=== PATIENT | female | born 1945 | race Caucasian/White ===

== ENCOUNTER → 2016-10-30 | Outpatient (CLI) | payer OTHER, BC ==
[~2016-10-30] MED LIST: ASPEC325 PO; CLB200 PO; CLTP PO; FRRS300 PO; LRT5 PO; MULT-506 PO; [UNRECOGNIZED DRUG - REMARK] PO
--- NOTE | 2016-10-30 16:46 | MAMMOGRAPHY REPORT ---
UNILATERAL LEFT DIGITAL SCREENING MAMMOGRAM TOMOSYNTHESIS WITH CAD: 10/30/2016 CLINICAL HISTORY: Asymptomatic. Personal history of breast cancer. TECHNIQUE: Left breast tomosynthesis in addition to standard 2D mammography was performed. Current estelle gillespie was also evaluated with a Computer Aided Detection (CAD) system. COMPARISON: Comparison is made to exams dated: 10/25/2015 mammogram, 10/22/2014 mammogram, 09/25/2013 giuseppe mogram, 09/24/2012 mammogram, 08/03/2011 mammogram, and 08/01/2010 mammogram - [facility]. BREAST COMPOSITION: The tissue of the left breast is heterogeneously dense, which may obscure small masses. FINDINGS: Again seen is stable asymmetry in the 12:00 left breast. No new suspicious mass, architec tural distortion or cluster of microcalcifications is seen. IMPRESSION: ACR BI-RADS CATEGORY 1: NEGATIVE There is no mammographic evidence of malignancy. A 1 year screening mammogram is recommended. The p atient will receive written notification of the results. Approximately 10% of breast cancers are not detected with mammography. A negative mammographic repor t should not delay biopsy if a clinically suggestive mass is present. Amy Estrada M.D. ay/:10/30/2016 15:41:33 Metal Tank Erector: Jenn HILLS)(Kirti), [facility] letter sent: Normal 1/2 BI-RADS Code: ACR BI-RADS Category 1: Negative
== END | disposition home or self-care (01) ==
LOC: C.MAMM 13:21
PROVIDERS: ATTEND Family Medicine
DX: Z12.31 Encounter for screening mammogram for malignant neoplasm of breast (principal); Z90.11 Acquired absence of right breast and nipple; M85.832 Other specified disorders of bone density and structure, left forearm; M85.88 Other specified disorders of bone density and structure, other site

== ENCOUNTER → 2017-08-26 | Outpatient (CLI) | payer OTHER, BC | END | disposition home or self-care (01) | LOC: C.PAPS 13:18 | PROVIDERS: ATTEND Family Medicine | DX: Z01.419 Encounter for gynecological examination (general) (routine) without abnormal findings (principal) ==

== ENCOUNTER → 2017-11-05 | Outpatient (CLI) | payer OTHER, BC ==
--- NOTE | 2017-11-06 07:52 | MAMMOGRAPHY REPORT ---
UNILATERAL LEFT DIGITAL SCREENING MAMMOGRAM TOMOSYNTHESIS WITH CAD: 11/05/2017 CLINICAL HISTORY: Asymptomatic. Personal history of breast cancer. TECHNIQUE: Left breast tomosynthesis in addition to standard 2D mammography was performed. Current st udy was also evaluated with a Computer Aided Detection (CAD) system. COMPARISON: Comparison is made to exams dated: 10/30/2016 mammogram, 10/25/2015 mammogram, 10/22/2014 giuseppe mogram, 09/25/2013 mammogram, 09/24/2012 mammogram, and 08/03/2011 mammogram - [facility] BREAST COMPOSITION: The tissue of the left breast is heterogeneously dense, which may obscure small masses. FINDINGS: The parenchymal pattern is similar to prior mammograms. There is stable focal asymmetry i n the 12:00 left breast. No developing mass, architectural distortion or cluster of suspicious micro calcifications is seen. IMPRESSION: ACR BI-RADS CATEGORY 2: BENIGN There is no mammographic evidence of malignancy. A 1 year screening mammogram is recommended. The pa tient will receive written notification of the results. Approximately 10% of breast cancers are not detected with mammography. A negative mammographic report should not delay biopsy if a clinically suggestive mass is present. Amy Estrada M.D. ay/:11/05/2017 15:28:07 Front Office Manager: Jane HILLS)(M), [facility] letter sent: Normal 1/2 BI-RADS Code: ACR BI-RADS Category 2: Benign
== END | disposition home or self-care (01) ==
LOC: C.MAMM 09:43
PROVIDERS: ATTEND Family Medicine
DX: Z12.31 Encounter for screening mammogram for malignant neoplasm of breast (principal); Z85.3 Personal history of malignant neoplasm of breast

== ENCOUNTER 2024-06-03 06:37 | Inpatient (IN) ==
--- NOTE | 2024-04-20 16:25 | PAT Medication Instructions ---
Medication Instructions Date of Service April 20, 2024 Home Medications Medication Instructions Recorded meclizine 25 mg tablet 25 mg PO TID PRN dizziness #90 tabs 10/24/22 walker (Ultra-Light Rollator misc) #1 ea 02/10/24 metaxalone 400 mg tablet 800 mg PO TID PRN muscle pain multivitamin (Daily Multi-Vitamin tablet) 1 tab PO QAM meclizine 25 mg tablet 25 mg PO TID PRN dizziness acetaminophen 650 mg tablet,extended release 650 mg PO Q8H PRN Pain melatonin 10 mg tablet,extended release 10 mg PO HS DO NOT take the morning of surgery multivitamin (Daily Multi-Vitamin tablet) 1 tab PO QAM Take morning of surgery With a small sip of water, OTHERWISE NOTHING TO EAT OR DRINK AFTER MIDNIGHT: meclizine 25 mg tablet 25 mg PO TID PRN dizziness (if needed) acetaminophen 650 mg tablet,extended release 650 mg PO Q8H PRN Pain (if needed) metaxalone 400 mg tablet 800 mg PO TID PRN muscle pain (if needed) Take evening before surgery meclizine 25 mg tablet 25 mg PO TID PRN dizziness(if needed) acetaminophen 650 mg tablet,extended release 650 mg PO Q8H PRN Pain (if needed) melatonin 10 mg tablet,extended release 10 mg PO HS metaxalone 400 mg tablet 800 mg PO TID PRN muscle pain (if needed) Other Notes If you have any questions please call us at [phone] or [phone] or [phone] or [phone]
--- NOTE | 2024-05-01 12:01 | Anesthesiology Consultation ---
Date of Service May 01, 2024 Assessment & Plan (1) Encounter for pre-operative examination: Plan - right arm restriction. - Outpatient joint assessment: Patient is currently scheduled for inpatient pathway. If re-evaluated and patient/surgeon requests outpatient pathway, patient is not advised candidate for outpatient joint program from anesthesia standpoint. Chart Review Chart Review: Acceptable Risk for Surgery and Patient seen in Pre Admission Testing Teaching & Discussion Pre-Anesthesia Teaching/Discussion Notes: Instructed NPO after midnight before surgery, except medications with 15 cc of water. Medication instructions provided according to the PAT guidelines. History Surgery Operation Date: 06/03/24 07:00 Proposed Procedures p Right Total Knee Arthroplasty - Rigo Felton MD Height/Weight Height: 5 ft 7.5 in Weight: 69.1 kg Allergies Allergy/AdvReac Type Severity Reaction Status Date / Time meperidine AdvReac Mild Nausea Verified 05/01/24 12:08 Medications Home Medications Medication Instructions Recorded Confirmed Last Taken metaxalone 400 mg tablet 800 mg PO TID PRN muscle pain 07/06/21 04/17/24 Unknown multivitamin (Daily Multi-Vitamin 1 tab PO QAM 07/06/21 04/17/24 Unknown tablet) meclizine 25 mg tablet 25 mg PO TID PRN dizziness #90 tabs 10/24/22 04/17/24 Unknown walker (Ultra-Light Rollator misc) #1 ea 02/10/24 Unknown acetaminophen 650 mg 650 mg PO Q8H PRN Pain 04/17/24 04/17/24 Unknown tablet,extended release melatonin 10 mg tablet,extended 10 mg PO HS 04/17/24 04/17/24 Unknown release Past Medical History Medical History (Updated 05/01/24 @ 12:11 by Asha Alejo PA-C) Hearing loss History of COVID-2020: joint pain, palpitations (resolved) - never had to f/u with cardiology History of poliomyelitis as a child, affected the right side at the time, then resolved. no residual effects. Hx of breast cancer (1992) right breast s/p mastectomy Hx of low back pain Hx of vertigo Limb alert care status right arm Osteoarthritis Osteopenia Tinnitus chronic since chemotherapy White coat syndrome without hypertension Patient denies h/o stroke, seizures, heart attack, heart failure, DM, blood clots/DVTs or blood transfusions. Exercise / Class Metabolic Activity III < 4 Walking/Shop/Light housework (ambulates with rolling walker, denies chest discomfort or shortness of breath with usual activities) Past Family History Family History Mother Breast cancer Other No family history of adverse response to anesthesia Past Surgical History Surgical History H/O colonoscopy last had May 2017. History of breast biopsy (11/2023) left breast (benign) with metal clip inplace. History of cholecystectomy History of mastectomy (1992) Right with lymph nodes Status post hip replacement bilateral Past Anesthesia History No Hx of Anesthesia Complications and No Family Hx of Anesthesia Complications History of PONV No Hx of PONV and No Hx of Motion Sickness Social History Smoking Status: Never smoker Do You Dip or Chew Tobacco: No Hx Alcohol Use: No Hx Substance Use: No Review of Systems Patient denies chest pain, shortness of breath, dyspnea on exertion, snoring, witnessed apneas, reflux, fever, chills, cough, wheezing, or palpitations. Physical Exam Vital Signs Vitals BP 164/92 P 100 (Pt notes anxiety at clinical appts) TEMP 98.0 F SP02 98% on RA RESP 18 Physical Patient resting comfortably in chair in no acute distress, alert and oriented, responding appropriately throughout visit Full cervical extension range of motion without pain TMD 3.5 finger breadths Mallampati Score 2 Dentition: several caps, denies chipped or loose teeth, crowns, implants or bridges Lungs: normal respiratory effort. Good air movement, clear throughout to auscultation, no adventitious breath sounds Cardiac: regular rate and rhythm, no murmurs noted Carotid arteries: negative bruit bilat Lab Results Anesthesia Preop Results Results Anesthesia Widget: WBC 7.18 K/ul (4.8-10.8) 05/01/24 Hgb 11.9 g/dl (12.0-16.0) L 05/01/24 Hct 35.0 % (37.0-47.0) L 05/01/24 Plt 360 K/uL (130-400) 05/01/24 Na 135 mmol/L (136-145) L 05/01/24 K 3.9 mmol/L (3.5-5.1) 05/01/24 Cl 99 mmol/L (98-107) 05/01/24 CO2 26 mmol/L (21-32) 05/01/24 BUN 13 mg/dl (6-23) 05/01/24 Creat 0.55 mg/dl (0.6-1.2) L 05/01/24 Glucose Level 106 mg/dl (70-99(Fasting)) H 05/01/24 PT 10.9 Seconds (9.0-12.0) 05/01/24 PTT 31 Seconds (21-31) 05/01/24 INR 1.0 (0.9-1.1) 05/01/24 Blood Type O Positive 05/01/24 Antibody Screen NEGATIVE 05/01/24 Testing Electrocardiogram Date: 05/01/24 NSR, rate 94 bpm Chest X-Ray Date: 05/01/24 No acute process.
[~2024-06-03 06:37] MED LIST changes: -ASPEC325 PO; +BUPIVACAINE 0.25% PF 30 ML VIAL ONE; +BUPIVACAINE 0.5 % 5 MG/1 ML PF 10ML VIAL ONE; -CLB200 PO; -CLTP PO; -FRRS300 PO; -LRT5 PO; -MULT-506 PO; -[UNRECOGNIZED DRUG - REMARK] PO
--- NOTE | 2024-06-03 06:49 | History & Physical Bridge Note ---
Date of Service June 03, 2024 History & Physical Bridge Note I have examined the patient, reviewed the History & Physical and in the interval since the performance of the History & Physical I have noted the following changes of clinical significance: conmsebt and site verified/riska accepted.no changes noted
[2024-06-03] MEDS ORDERED: fentaNYL citrate PF 100 MCG/2 ML VIAL ONE (07:18)
[2024-06-03] MEDS ORDERED: LIDOCAINE 2% 2 ML VIAL/AMP(20MG/ML) INFIL ONE (07:18)
[2024-06-03] MEDS ORDERED: MIDAZOLAM HCL 1 MG/ML 2ML VIAL ONE (07:18)
[2024-06-03] MEDS ORDERED: PROPOFOL IV EMULSION 10 MG/ML 20 ML VIAL IV ONE ×3 (07:18→10:07)
[2024-06-03] MEDS: LR 60ML/HR IV SCH (07:35)
[2024-06-03] MEDS: LR 500ML BOLUS, THEN 15ML/HR IV SCH (07:35)
[2024-06-03] MEDS ORDERED: ONDANSETRON INJ 2 MG/ML 2 ML VIAL IV PRN ×2 (08:21→13:27)
[2024-06-03] MEDS ORDERED: ATROPINE SULFATE 0.1 MG/ML 10ML SYR IV PRN (08:21)
[2024-06-03] MEDS ORDERED: ePHEDrine sulfate 50 MG/ML AMP IV PRN (08:21)
[2024-06-03] MEDS: TRANEXAMIC ACID 1,000 MG **IV Pre-op IV SCH (08:38)
[2024-06-03] MEDS: ceFAZolin 2000MG 2,000 MG/15 ML SYR IV SCH (08:56)
[2024-06-03] MEDS ORDERED: ePHEDrine sulfate 50 MG/5 ML SYR ONE (09:16)
[2024-06-03] MEDS: TRANEXAMIC ACID 1,000 MG **IV Intra-op IV SCH (10:12)
[2024-06-03] MEDS: ORTHO JOINT ANESTHETIC ONE (10:17)
[2024-06-03] MEDS: ROPIV 0.5% 246mg, Ketorolac 30mg, EPINEPHrine 0.5mg in NSS INFIL SCH (10:32)
--- NOTE | 2024-06-03 10:41 | Post Operative Brief Note ---
Immediate Post Op Note Date of Surgery June 03, 2024 Pre & Post Diagnosis Operation Date: 06/03/24 08:50 <No data on this case meets the specified criteria> Preop diagnosis is valgus deformity with severe osteoarthritis right knee marked synovitis pre and postop diagnosis same I identified the patient and participated in the time-out.: Yes Procedure Operation Date: 06/03/24 08:50 <No data on this case meets the specified criteria> Procedure cemented right total knee replacement Surgeon Rigo Felton MD Laboratory Technologist Stephania/Yonis villegas Estimated Blood Loss 100 Findings Consistent with Post-Op Diagnosis Severe osteoarthritis marked synovitis osteoporosis Fluids Crystalloid per anesthesia Complications None
--- NOTE | 2024-06-03 10:46 | Operative Report ---
Post Operative Report Pre & Post Diagnosis Operation Date: 06/03/24 08:50 <No data on this case meets the specified criteria> Preop diagnosis severe osteoarthritis right knee with valgus deformity and hypertrophic synovium Postop diagnosis severe osteoarthritis right knee with valgus deformity hypertrophic synovium I identified the patient and participated in the time-out.: Yes Procedure Operation Date: 06/03/24 08:50 <No data on this case meets the specified criteria> Cemented right total knee replacement Surgeon Rigo Felton MD Manager Van Kip villegas Estimated Blood Loss 100 Findings Consistent with Post-Op Diagnosis Severe disease Fluids Crystalloid per anesthesia Specimens Bone and soft tissue pathology Drains None Complications None Indications Severe pain failed conservative management over years Description of Procedure After the patient was appropriate notified site verified consent verified antibiotics confirmed as a given the right lower extremity was prepped and draped in his routine fashion. Tourniquet was inflated to 275 mmHg after exsanguination limb with a rubber arthrograms for total 64 minutes. Midline exposure was utilized. Parapatellar arthrotomy was performed. There was exuberant synovitis and synovial fluid this was all evacuated and the synovectomy completed. There is osteophytes along the margin of the femur. These were resected. Intercondylar notch was then opened. Cruciates were resected. The tibia was subluxated. The menisci resected. Femur was then resected 11 mm proximal tibia 4 mm the extension gap was excellent. The femur was sized to a 6 and appropriate cutting block applied the anterior posterior, and chamfer cuts made. Flexion gap was checked and was excellent. The box cut was then completed and the size 6 femur was then impacted into position. Tibia was then subluxated anteriorly and size 5 was appropriate block we did use a stem cell the root the stem reaming system was applied. A 30 mm stem was utilized. Excellent fit was obtained reduction was excellent full range of motion reasonable tracking of the patella and excellent midrange full flexion stability and extension was to 0. Patella was resected leaving 14 mm and a 3 5 button was seated. With a little bit of soft tissue release not a full- thickness release tracked well. All implants were then removed wound was irrigated with Pulsavac soaked in Betadine for 2 minutes and then after mixing the cement and the implants were impacted into position tibia femur and patella in that order after 15 minutes the knee was inspected the tourniquet was released at 12 minutes there was no major bleeding. Once everything looked good no major cement removal was required the trial spacer was removed and the permanent seated the knee reduced after was irrigated with Betadine and then closed at 40 degrees of flexion with #2 Vicryl 2-0 Vicryl and standstill clips. Summary of implants size 6 right femur posterior cruciate substituting size rotating platform tray 14 x 30 stem on the tray 35 patella 6 x 6 RP stabilized insert matching the femur. These were all DePuy [employer] Synthes ATT UNE system. EBL was roughly 175 200 cc crystalloid per anesthesia pathology pending on bone and soft tissue. DVT prophylaxis per protocol starting tomorrow. I attest to the content of the Intraoperative Record and any orders documented therein. Any exceptions are noted below.
--- NOTE | 2024-06-03 10:49 | Orthopedic Progress Note ---
Date of Service June 03, 2024 Orthopedic Progress Note Patient underwent right total knee replacement. She did well. There is no major issues. Wound dressing clean dry and intact neurovascular limited by spinal. Postop x-rays pending. Family contacted.
--- NOTE | 2024-06-03 10:51 | Discharge Summary ---
Date of Service June 04, 2024 Admission HPI Per Admitting Provider Right knee pain severe valgus deformity Principal Diagnosis Osteoarthritis valgus deformity right knee with marked synovitis Discharge Data Allergies Allergy/AdvReac Type Severity Reaction Status Date / Time meperidine AdvReac Mild Nausea Verified 06/03/24 06:59 Vaccinations None Consultations None Procedures Performed Operation Date: 06/03/24 08:50 Actual Procedures p Right Total Knee Arthroplasty, Cemented - Rigo Felton MD Ordered Studies 06/03/24 05:00 US - OR guided needle placemen Routine Hospital Course (1) Status post right knee replacement: Care plan for right total knee replacement 23-hour admission. Total Time Total Time Spent Total Time Spent (In Minutes): 5 Discharge Plan Discharge Items Reason For Visit: Osteoarthritis Knee Right Discharge Diagnosis: Status post right total knee replacement Follow-up/Referrals: Jodi Antunez DO [Primary Care Provider] - Addtl Attending Provider Instructions: DIET: * Resume previous diet. MEDICATIONS: * Please take your prescriptions as instructed at your pre-op appointment and/or see medication discharge instructions listed above. * If concerns develop, call your physician's office at . SPECIAL CARE INSTRUCTIONS: * Ice/Elevate as instructed. * Keep dressing clean, dry, intact. * Your surgical extremity may be discolored due to prepping agents used on the skin. A bluish-green tint is a normal variant and should not cause alarm. Call your doctor at [phone] if: * Temperature above 101 degrees * Pain not relieved by pain medicine ordered * There is increased drainage or redness from any incision * You have any unanswered questions, problems or concerns. FOLLOW UP VISIT: * If not already scheduled, please call the office at to schedule a follow-up appointment. Stand-Alone Forms: My [facility] Medications and DC Order Prescriptions: No Action meclizine 25 mg tablet 25 mg PO TID PRN (Reason: dizziness) Qty: 90 2RF (DME) Ultra-Light Rollator Misc See Rx Instructions .Route Qty: 1 0RF Rx Instructions: As directed multivitamin [Daily Multi-Vitamin] Tablet 1 tab PO QAM metaxalone 400 mg tablet 800 mg PO TID PRN (Reason: muscle pain) lisinopril 10 mg tablet 10 mg PO DAILY Qty: 90 0RF melatonin 10 mg Tablet Extended Release 10 mg PO HS acetaminophen [Tylenol Arthritis] 650 mg Tablet Extended Release 650 mg PO Q8H PRN (Reason: Pain) Admission Data Admit Date/Time: 06/03/24 11:04 Attending Provider: Rigo Felton Admit Provider: Rigo Felton Primary Care Provider: Jodi Antunez Other Providers: [facility],Home Healthcare
--- NOTE | 2024-06-03 10:53 | Operative Report ---
Post Operative Report Pre & Post Diagnosis Operation Date: 06/03/24 08:50 Pre-Op Diagnosis: Right Knee Osteoarthritis Post-Op Diagnosis: Right Knee Osteoarthritis I identified the patient and participated in the time-out.: Yes Procedure Operation Date: 06/03/24 08:50 Actual Procedures p Right Total Knee Arthroplasty, Cemented - Rigo Felton MD Surgeon Rigo Felton MD Pipe Setter Stephania/Yonis villegas Estimated Blood Loss 100 Findings Consistent with Post-Op Diagnosis Specimens Bone and soft tissue pathology Description of Procedure The patient was brought to the operative suite where she underwent anesthesia. The right lower extremity was prepped and draped in the usual sterile fashion. Surgical timeout was performed. The patient underwent a right total knee arthroplasty; please see Dr. Felton's operative for full details. I was present assisted with limb positioning, patient positioning, soft tissue retraction, surgical exposure, bony resection, hardware implantation, wound closure, postoperative dressing placement. Patient was awakened and taken to the recovery room in stable condition. I attest to the content of the Intraoperative Record and any orders documented therein. Any exceptions are noted below.
--- NOTE | 2024-06-03 11:16 | XRay Report ---
XR knee RT 1 or 2V routine CLINICAL HISTORY: S/P R TKA COMPARISON: Right knee radiographs February 24, 2024. FINDINGS: Alignment of the total right knee arthroplasty is anatomic. There is no periprosthetic fra cture or unexpected radiopaque foreign body. There are skin carisa. IMPRESSION: Expected findings following total right knee arthroplasty. ACT 112: Negative or not required by law. Electronically signed by: Elvis Ventura M.D. 06/03/2024 11:14 AM
[2024-06-03] MEDS ORDERED: VANCOMYCIN CONSULT ACTIVE PRN (11:21)
[2024-06-03] MEDS ORDERED: VANCOMYCIN HCL 1,000 MG in DEXTROSE 5% 250 ML IV STA (11:21)
[2024-06-03] MEDS: fentaNYL citrate PF 100 MCG/2 ML VIAL IV PRN (12:09)
--- NOTE | 2024-06-03 12:35 | Anesthesiology Progress Note ---
Date of Service June 03, 2024 Anesthesia Post Procedure Vital Signs Vital Signs: Temp Pulse Resp BP Pulse Ox O2 Del Method O2 Flow Rate 06/03/24 12:30 81 18 114/63 95 Room Air 06/03/24 12:00 96 H 18 140/61 96 Room Air 06/03/24 11:30 36.5 C 88 20 120/92 96 Room Air 06/03/24 11:20 88 20 104/62 96 Room Air 06/03/24 11:10 97 H 20 112/47 L 98 Room Air 06/03/24 11:00 105 H 18 96/64 L 98 Oxymask 4 06/03/24 10:54 36 C L 96 H 12 93/45 L 96 Oxymask 6 06/03/24 07:12 36.9 C 102 H 20 172/76 H 97 Room Air Pain Intensity Right Knee: Pain Intensity: 5 Transfer of Care Handoff Completed per policy Notes Mental Status: alert / awake / arousable Patient Amnestic to Procedure: Yes Nausea / Vomiting: adequately controlled Pain: adequately controlled Airway Patency, RR, SpO2: stable & adequate BP & HR: stable & adequate Hydration State: stable & adequate Neuraxial Anesthesia: was administered and sensory block is resolving Anesthetic Complications: no major complications apparent and Pt Satisfied with anesthetic care
[2024-06-03] MEDS ORDERED: MAGNESIUM HYDROXIDE SUSP 30 ML UDC PO PRN (13:27)
[2024-06-03] MEDS ORDERED: bisacodyL 10 MG SUPP PR PRN (13:27)
[2024-06-03] MEDS ORDERED: HYDROmorphone INJ 1 MG/ML SYRINGE IV PRN (13:27)
[2024-06-03] MEDS ORDERED: NALOXONE HCL 0.4 MG/1 ML VIAL/CARP IV PRN (13:27)
[2024-06-03] MEDS ORDERED: MECLIZINE HCL 25 MG TAB PO PRN (13:27)
[2024-06-03] MEDS: VANCOMYCIN HCL 1,000 MG in DEXTROSE 5% 250 ML IV STA (14:01)
[2024-06-03] MEDS: ACETAMINOPHEN 500 MG TAB PO SCH (15:19)
[2024-06-03] MEDS: ceFAZolin 1000MG 1,000 MG/7.5 ML SYR IV SCH (16:55)
[2024-06-03] MEDS: oxyCODONE HCL IR 5 MG TAB (IMMEDIATE RELEASE) PO PRN (16:55)
[2024-06-03] MEDS: MELATONIN 3 MG TAB PO SCH (20:06)
[2024-06-03] MEDS: DOCUSATE SODIUM 100 MG CAP PO SCH (20:07)
[2024-06-03] MEDS: SENNA 8.6 MG TAB PO SCH (20:07)
[2024-06-03] MEDS: HYDROmorphone INJ 0.5 MG/0.5 ML SYR IV PRN (20:07)
--- NOTE | 2024-06-04 05:56 | Orthopedic Progress Note ---
Date of Service June 04, 2024 Assessment & Plan Admission and Anticipated Discharge Date Admission Date: June 03, 2024 Orthopedic Progress Note complained of pain when the block worn off...needs incentive spirometry...not done yet. vss tmax 37.6 now 37.1. dressing CDI. has no calve pain either leg has normal femoral and sciatic nerve functioning. no pain with active or passive ankle ROM in the calves. labs pending assement doing well needs to be motivated needs incentive spirometry. discharge after passing PT/OT and case management assessment. start eiiquis today. dressing change by MAN'estelle .
[2024-06-04 06:21] LABS: Hematocrit (blood only) 27.4 % (37.0-47.0); Hemoglobin 9.1 g/dl (12.0-16.0); Mean Corpuscular Hemoglobin 30.6 pg (25.0-34.0); Mean Corpuscular Hgb Conc 33.2 g/dL (32.0-36.0); Mean Corpuscular Volume 92.3 fL (80.0-100.0); Platelet Count 266 K/uL (130-400); RDW Coefficient of Variation 13.6 % (11.5-14.5); RDW Standard Deviation 45.6 fL (36.4-46.3); Red Blood Count 2.97 M/uL (4.20-5.40); White Blood Count 11.32 K/ul (4.8-10.8)
[2024-06-04 06:42] LABS: Calcium 8.9 mg/dl (8.6-10.3); Creatinine Clr Calc Pharmacy 59.1 ml/min
[2024-06-04] MEDS: lisinopril 10 MG TAB PO SCH (07:03)
[2024-06-04] MEDS: dexAMETHasone 4 MG TAB PO SCH (07:27)
[2024-06-04] MEDS: MULTIVITAMIN TAB PO SCH (07:28)
[2024-06-04] MEDS ORDERED: NON-FORMULARY MEDICATION (Multivitamin [Daily Multi-Vitamin] tablet) PO SCH (09:00)
--- NOTE | 2024-06-04 09:03 | Orthopedic Progress Note ---
Date of Service June 04, 2024 Assessment & Plan (1) Status post right knee replacement: Plan: She was evaluated by OT this morning and was able to get into the bathroom but after standing for period of time she developed some nausea and had to lay down. She was given sonya britta, 500 cc bolus of normal saline, and a dose of Zofran. She did not have any vomiting. After she sat in bed for some time she stated that she was feeling better. Her labs show a hemoglobin of 9.1 likely secondary to acute blood loss anemia. Mild hyponatremia 133. No LEWIS. Mild leukocytosis at 11.32 likely secondary to surgery. Blood pressure was a little soft this morning at 97/60. Fluids should help. Temperature now normal, was previously elevated yesterday. PT evaluated patient after above intervention and recommended rehab. Per case management, patient did not want to go to rehab and requested to stay an additional night in the hospital and hopefully be discharged tomorrow. This seems reasonable as she has home health and everything set up to be at home. We will see how she feels tomorrow and make decision. Dr. De Souzaelli aware. Dressing change completed today. She will leave the dressing in place. Appointment scheduled for her 6 days from now in the clinic. Reiterated and educated on incentive spirometry use. Repeat labs tomorrow morning. She should use knee immobilizer through 06/05 when ambulating with a walker, then discontinue Ice to knee. Elevate with pillow under ankle to encourage knee extension. Pain medication sent to pharmacy once she is discharged. PDMP reviewed with no concerns. Eliquis twice daily over the next 4 weeks. Prescription sent. Patient was concerned about the cost. Our office sent a coupon to her pharmacy Iron supplementation Keep dressing dry and in place. Thigh-high teds 20 hours/day for the next 6 weeks. Follow-up appointment scheduled 06/10/2024 with our office. Will continue to coordinate with PT/OT and case management. Admission and Anticipated Discharge Date Admission Date: June 03, 2024 Subjective Patient seen in bed today. She states that she is doing better than yesterday but does not want to eat much. She has been eating crackers and yogurt but that's about it. She is awaiting PT and OT assessment today. Pain in the right knee is moderate but not significant. She denies any numbness or tingling in her toes. No chest pain or shortness of breath. No pain in her calf. She states she forgot to use the incentive spirometer as initially instructed. Physical Exam Constitutional: Resting in bed. Slightly weak appearing but in no distress. Respiratory: Unlabored Cardiovascular: Right DP and PT pulses 2+ Musculoskeletal: Right lower extremity: Surgical dressing taken down. Incision over anterior knee appears to be intact with no surrounding erythema or discharge. There is mild soft tissue swelling present. Able to perform straight leg raise. Strength 5 out of 5 with ankle plantarflexion, dorsiflexion, inversion, eversion, and resisted great toe extension. Calf is soft, nontender. Able to stand and ambulate with knee immobilizer in place with assistance of walker. Neurologic: No sensory deficits in right lower extremity to light touch. Results & Data Vital Signs (Past 12 Hours) Vital Signs Temp Pulse Resp BP Pulse Ox O2 Del Method 06/04/24 08:03 98.6 F 80 18 97/60 L 94 Room Air 06/04/24 05:24 98 H 114/66 06/04/24 04:27 98.8 F 87 16 99/62 L 96 Room Air 06/04/24 01:37 99.9 F H 93 H 15 93/57 L 94 Room Air 06/04/24 00:52 98.2 F 104 H 16 93/56 L 94 Room Air 06/03/24 23:01 99.7 F H 120 H 18 132/70 99 Room Air 06/03/24 22:43 100.9 F H 117 H 18 171/83 H 95 Room Air Laboratory Results 06/04/24 05:33 WBC 11.32 H RBC 2.97 L Hgb 9.1 L Hct 27.4 L MCV 92.3 MCH 30.6 MCHC 33.2 RDW Std Deviation 45.6 RDW Coeff of Ellie 13.6 Plt Count 266 MPV 9.0 L Sodium 133 L Potassium 4.0 Chloride 99 Carbon Dioxide 26 Anion Gap 8 BUN 17 Creatinine 0.74 Est Cr Clr Drug Dosing 59.1 eGFR 81.23 BUN/Creatinine Ratio 23.0 H Glucose 116 H Calcium 8.9 Diagnostic Findings Knee X-Ray 06/03/24 10:39 XR knee RT 1 or 2V routine CLINICAL HISTORY: S/P R TKA COMPARISON: Right knee radiographs February 24, 2024. FINDINGS: Alignment of the total right knee arthroplasty is anatomic. There is no periprosthetic fracture or unexpected radiopaque foreign body. There are skin carisa. IMPRESSION: Expected findings following total right knee arthroplasty. ACT 112: Negative or not required by law. Electronically signed by: Elvis Ventura M.D. 06/03/2024 11:14 AM
[2024-06-04] MEDS: SODIUM CHLORIDE 0.9% 500 ML IV ONE (10:22)
[2024-06-04] MEDS: APIXABAN 2.5 MG TAB PO SCH (10:31)
[2024-06-04] MEDS: ONDANSETRON INJ 2 MG/ML 2 ML VIAL IV ONE (10:31)
[2024-06-04] MEDS: traMADol HCL 50 MG TABLET PO PRN (16:04)
[2024-06-04] MEDS: PANTOprazole 40 MG TAB PO SCH (21:16)
[2024-06-05] MEDS: dexAMETHasone 4 MG TAB PO ONE (06:05)
--- NOTE | 2024-06-05 07:12 | Orthopedic Progress Note ---
Date of Service June 05, 2024 Assessment & Plan Admission and Anticipated Discharge Date Admission Date: June 04, 2024 Orthopedic Progress Note phone rounds from [place]....Patient feels better . wants to go home .finalize plans after PT/OT. she can stop the immobilizer after today.
--- NOTE | 2024-06-05 08:27 | Orthopedic Progress Note ---
Date of Service June 05, 2024 Assessment & Plan (1) Status post right knee replacement: Plan: November D/C immobilizer this afternoon PT/OT this AM Ice to knee. Elevate with pillow under ankle to encourage knee extension. Pain medication sent to pharmacy once she is discharged. PDMP reviewed with no concerns. Eliquis twice daily over the next 4 weeks. Prescription sent. Patient was concerned about the cost. Our office sent a coupon to her pharmacy Iron supplementation Keep dressing dry and in place. Thigh-high teds 20 hours/day for the next 6 weeks. Plan is to discharge home today if she does well with PT/OT. Home therapy should already be established. If she fails her protocol there is a referral in place for her to go to [facility] Follow-up appointment scheduled 06/10/2024 with our office. Will continue to coordinate with PT/OT and case management. With questions contact our clinic at [phone] Admission and Anticipated Discharge Date Admission Date: June 04, 2024 Subjective This 79-year-old female seen day 2 status post right total knee arthroplasty. Patient states she is doing much better today than yesterday. She states that she has been able to get up and go to the bathroom without significant issue. She does not feel lightheaded or nauseous. She is currently eating her breakfast. She states that she would like to be discharged home today. I advised her that this depends on how well she would do with PT/OT this morning. She understands that there is a referral in place for [facility] in case she does not pass the protocol. Currently she denies chest pain, shortness of breath, fever, chills, sweats, nausea, vomiting, diarrhea or numbness or tingling in her right lower extremity. Review of Systems Review of Systems: All systems reviewed & are unremarkable except as noted in Subjective Physical Exam Physical Exam: Right knee: Dressing is clean dry and intact left in place. Patient is able to perform active straight leg raise test. She is able to actively dorsi and plantarflex her foot without issue. She does have some mild tenderness to palpation over the quadricep where the tourniquet was placed and currently has ice on it. Her peripheral pulses are 2+. She is able to detect light sensation to touch over the pads of all digits. Her calf is soft and supple nontender to palpation. Results & Data Vital Signs (Past 12 Hours) Vital Signs Temp Pulse Resp BP Pulse Ox O2 Del Method 06/05/24 07:35 36.6 C 81 16 116/60 96 Room Air Diagnostic Findings Laboratory Results WBC 11.32 K/ul (4.8-10.8) H 06/04/24 05:33 RBC 2.97 M/uL (4.20-5.40) L 06/04/24 05:33 Hgb 9.1 g/dl (12.0-16.0) L 06/04/24 05:33 Hct 27.4 % (37.0-47.0) L 06/04/24 05:33 MCV 92.3 fL (80.0-100.0) 06/04/24 05:33 MCH 30.6 pg (25.0-34.0) 06/04/24 05:33 MCHC 33.2 g/dL (32.0-36.0) 06/04/24 05:33 RDW Std Deviation 45.6 fL (36.4-46.3) 06/04/24 05:33 RDW Coeff of Ellie 13.6 % (11.5-14.5) 06/04/24 05:33 Plt Count 266 K/uL (130-400) 06/04/24 05:33 MPV 9.0 fL (9.4-12.4) L 06/04/24 05:33 Sodium 133 mmol/L (136-145) L 06/04/24 05:33 Potassium 4.0 mmol/L (3.5-5.1) 06/04/24 05:33 Chloride 99 mmol/L (98-107) 06/04/24 05:33 Carbon Dioxide 26 mmol/L (21-32) 06/04/24 05:33 Anion Gap 8 (3-11) 06/04/24 05:33 BUN 17 mg/dl (6-23) 06/04/24 05:33 Creatinine 0.74 mg/dl (0.6-1.2) 06/04/24 05:33 Est Cr Clr Drug Dosing 59.1 ml/min 06/04/24 05:33 eGFR 81.23 06/04/24 05:33 BUN/Creatinine Ratio 23.0 (10-20) H 06/04/24 05:33 Glucose 116 mg/dl (70-99(Fasting)) H 06/04/24 05:33 Calcium 8.9 mg/dl (8.6-10.3) 06/04/24 05:33 Impressions Knee X-Ray 06/03/24 10:39 XR knee RT 1 or 2V routine CLINICAL HISTORY: S/P R TKA COMPARISON: Right knee radiographs February 24, 2024. FINDINGS: Alignment of the total right knee arthroplasty is anatomic. There is no periprosthetic fracture or unexpected radiopaque foreign body. There are skin carisa. IMPRESSION: Expected findings following total right knee arthroplasty. ACT 112: Negative or not required by law. Electronically signed by: Elvis Ventura M.D. 06/03/2024 11:14 AM
[2024-06-05 11:17] VITALS: BP 136/77; PULSE 79; RESP 18; TEMP 97.7; O2SAT 94
== END 2024-06-05 12:42 | disposition home health service (06) | DRG 470 ==
LOC: ASU 06:37 → 3E 06:37
DX: Z88.5 Allergy status to narcotic agent; M17.11 Unilateral primary osteoarthritis, right knee; D62 Acute posthemorrhagic anemia; Z79.899 Other long term (current) drug therapy; E87.1 Hypo-osmolality and hyponatremia